=== PATIENT | female | born 1960 | race Caucasian/White ===

== ENCOUNTER → 2017-02-28 | Outpatient (CLI) | payer OTHER ==
--- NOTE | 2017-02-28 19:55 | PN ---
DATE OF SERVICE: 02/28/2017 A 56-year-old lady who has been followed in the sleep center for treatment of obstructive sleep apnea-hypopnea. Patient continued to use her CPAP equipment every night for the whole night without any significant problems. No problems with the machine. She does not snore while using equipment. [place] Sleepiness Scale is in normal range at 7. The patient's sleep schedule now from 9:00 p.m. until 5:30 in the morning. MEDICATIONS: Lisinopril. During physical exam, GENERAL: The patient in no distress. VITAL SIGNS: BP 161/66, HR 93, RR 14. Height 59. Weight 196.6. BMI 39.5. Temperature 98.0. Oxygen saturation at room air 97%. HEENT: PERRLA, EOMI, Evaluation of the oropharynx showed extremely low position of soft palate. NECK: Supple. No JVD, Thyroid is not palpable. LUNGS: Clear to percussion and to auscultation. Good air exchange. No wheezing or rhonchi. HEART: S1, S2 regular. No murmurs, gallops, or rubs. ABDOMEN: Slightly obese. Soft and nontender. Bowel sounds are present. No organomegaly appreciated. CASHIER CREDIT: Awake, alert, and oriented x3. Cranial nerves 2 to 7 intact. There is no fasciculation or atrophy noted. No focal deficits observed. IMPRESSION: 1. Obstructive sleep apnea-hypopnea syndrome on control clinically with CPAP. No snoring with the machine. No sleepiness during the day. 2. Obesity. Patient increased her weight around 8 pounds comparing with the previous visit last year. 3. Hypertension. 4. History of hypothyroidism. PLAN: 1. Continue treatment with the CPAP every night for the whole night. 2. Losing weight. 3. Sleep hygiene with regular time in bed for at least 7-1/2 hours. 4. No driving if feeling any sleepiness. 5. Prescription for all necessary CPAP supplies including mask, tube, filters. Thank you very much for allowing me to participate in the management of your patient. Sincerely, Boni Hinton MD, PhD, FAASM Diplomat of [place] [employer], Sleep Medicine Board by [place] [employer] [place] [employer] Poured Wall Foreman of [facility] [place]
== END | disposition home or self-care (01) ==
LOC: SLEEP 16:13
PROVIDERS: ATTEND Internal Medicine
DX: G47.33 Obstructive sleep apnea (adult) (pediatric) (principal); Z79.899 Other long term (current) drug therapy; E66.9 Obesity, unspecified; Z68.39 Body mass index [BMI] 39.0-39.9, adult; I10 Essential (primary) hypertension

== ENCOUNTER 2018-10-27 13:11 | Emergency (ER) | payer OTHER ==
[2018-10-27] MEDS ORDERED: MORPHINE SULFATE 2 MG/ML SYRINGE IVP STA (13:16)
--- NOTE | 2018-10-27 13:22 | ED ---
Extremity Problem HPI - General Stated complaint: Fall/ankle injury Time Seen by Provider: 10/27/18 13:11 Source: patient, EMS, RN notes reviewed Mode of arrival: EMS - History of Present Illness Initial comments: This is a 58-year-old female history of hypertension who was at work today when she stepped and twisted her left ankle and now complains of severe left ankle pain. She was brought in by EMS. She does have evidence of a deformity. With no pulses. Patient did maintained sensation to given 100 g of fentanyl IM. No other injury reported other pain reported MD Complaint: extremity pain - Related Data Home Medications Medication Instructions Recorded Confirmed Calcium Lactate 84 mg PO DAILY 10/27/18 10/27/18 Cholecalciferol [Vitamin D3] 1,000 unit PO DAILY 10/27/18 10/27/18 Cyanocobalamin (Vitamin B-12) 1,000 mcg PO DAILY 10/27/18 10/27/18 [Vitamin B-12] Iodine 1 tab PO DAILY 10/27/18 10/27/18 Lisinopril [Zestril] 2.5 mg PO DAILY 10/27/18 10/27/18 Previous Rx's Medication Instructions Recorded Hydrocodone/Acetaminophen [[place] 1 each PO Q6HR PRN #12 tab 10/27/18 5-325] Allergies Allergy/AdvReac Type Severity Reaction Status Date / Time No Known Allergies Allergy Verified 10/27/18 13:33 Review of Systems ROS Statement: Those systems with pertinent positive or pertinent negative responses have been documented in the HPI. ROS Other: All systems not noted in ROS Statement are negative. General Exam - General Exam Comments Initial Comments: This a well-developed well-nourished awake alert anxious appearing female [place] Coma Scale 15 Limitations: physical limitation General appearance: alert, anxious, in distress Head exam: Present: atraumatic, normocephalic, normal inspection Eye exam: Present: normal appearance, PERRL, EOMI. Absent: scleral icterus, conjunctival injection, periorbital swelling ENT exam: Present: normal exam, mucous membranes moist Neck exam: Present: normal inspection, full ROM Extremities exam: Present: tenderness, normal capillary refill, joint swelling ( Examination left lower extremity demonstrates tenderness palpation and evidence of deformity of the left ankle with lateral rotation. Pulses are limited however the capillary refills less than 2 seconds sensory is intact motor is intact. No overt pain above and below the injury.), other Neurological exam: Present: alert, oriented X3, CN II-XII intact Psychiatric exam: Present: normal affect, anxious Skin exam: Present: warm, dry, intact, normal color. Absent: rash Course Vital Signs 10/27/18 10/27/18 10/27/18 13:15 15:08 15:20 Temperature 97.7 F Pulse Rate 94 88 86 Respiratory 18 20 18 Rate Blood Pressure 161/69 144/65 150/78 O2 Sat by Pulse 100 100 100 Oximetry 10/27/18 10/27/18 10/27/18 15:35 15:50 16:05 Temperature Pulse Rate 88 90 86 Respiratory 18 18 18 Rate Blood Pressure 140/74 134/69 132/69 O2 Sat by Pulse 100 100 97 Oximetry - Reevaluation(s) Reevaluation #1: 10/27/18 17:[address] Serra a [address] the left ankle is requested prior to discharge this will be accomplished the patient will be then discharged and keep follow-up as planned Procedures - Orthopedic Fracture Reduction Fracture #1 Consent Obtained: verbal consent, written consent, emergent situation Time Out Performed: Yes Side: left Fracture Reduction Location: other (Ankle) Analgesia: procedural sedation Technique: direct manipulation Post Reduction X-rays Demonstrate: acceptable reduction Post-Reduction Neuro Exam: intact Post-Reduction Vascular Exam: intact Splint Applied: Yes (Posterior short leg 5 x 35 by short leg stirrup 3 x 35) Patient Tolerated Procedure: well - Procedural Sedation Procedural Sedation Start Time: 15:20 Indications: fracture/dislocation reduction ASA Class: II Mallampati Airway Score: 2 Preparation: nuclear monitoring technician applied, pulse oximeter, capnometry used, supplemental O2 applied, reversal agents at bedside, suction/airway equipment at bedside, IV secured Midazolam: IV Midazolam Dose: 2 IV Propofol Dose (mgs): 90 Complications: none Patient Tolerated Procedure: well, no complications (Total in-service time for the sedation 24 minutes) Medical Decision Making - Medical Decision Making The patient tolerated this well I did a long discussion with family members. Patient will be discharged and seen around 10 AM [facility] and Dr. Serra I did discuss the case with Kandi. Family has already made an appointment to see the physician tomorrow. Patient does have access to crutches. She and her family are in agreement with this plan. - EKG Data -: EKG Interpreted by Me - Radiology Data Radiology results: report reviewed (I did review all the imaging and reports a displaced fracture dislocation of the left ankle is noted no other fractures or subluxations seen post reduction films were reviewed with good results.), image reviewed Disposition Clinical Impression: Fracture dislocation of left ankle, Fall Disposition: HOME SELF-CARE Condition: Good Instructions: Ankle Fracture (ED), Ankle Dislocation (ED) Prescriptions: Hydrocodone/Acetaminophen [[place] 5-325] 1 each PO Q6HR PRN #12 tab PRN Reason: Pain Is patient prescribed a controlled substance at d/c from ED?: Yes When asked, does pt state using other controlled substances?: No If prescribed controlled substance>3 days was MAPS reviewed?: Prescribed <3 Days Referrals: Shiv Quintanilla DO [Primary Care Provider] - 1-2 days Vijay Serra MD [Medical Doctor] - 1-2 days
[2018-10-27] MEDS ORDERED: ONDANSETRON 4 MG/2 ML VIAL IVP STA ×2 (14:00→16:54)
[2018-10-27] MEDS ORDERED: PROPOFOL 10 MG/ML 20 ML VIAL IV STA (14:25)
[2018-10-27] MEDS ORDERED: MIDAZOLAM 1 MG/ML 5 ML VIAL IV STA (14:27)
--- NOTE | 2018-10-27 14:30 | XR ---
EXAMINATION TYPE: XR ankle limited LT, XR foot limited LT DATE OF EXAM: 10/27/2018 CLINICAL HISTORY: Left ankle and foot pain after a fall TECHNIQUE: Frontal and lateral images of the left ankle and foot are obtained. COMPARISON: None. FINDINGS: There is a comminuted fracture of the distal fibula with approximately 7 mm lateral displac ement of the distal fracture fragment. There is widening of the and a small cyst with no overlap of t he distal tibia or fibula and 1.1 cm diastases. There is also medial subluxation of the tibia with me dial joint space capital 1.6 cm. In regards to the above described fibular fracture on the lateral vi ew there is 6 mm dorsal displacement of the distal fracture fragment. There is cortical disruption of the posterior malleolus as well with the appearance of a minimally displaced noncomminuted fracture. Overlying soft tissue swelling is seen of the left ankle. No additional fracture is seen of the left foot. No proximal fibular or tibial fracture is seen on t he tibia/fibula radiographs. IMPRESSION: Comminuted lateral fibular fracture and syndesmotic widening suggesting syndesmotic injur y with medial tibial subluxation and nondisplaced posterior malleolar fracture of the left lower extr emity.
--- NOTE | 2018-10-27 15:55 | XR ---
EXAMINATION TYPE: XR ankle limited LT DATE OF EXAM: 10/27/2018 CLINICAL HISTORY: Left ankle pain. Status post reduction of fracture subluxation. TECHNIQUE: Frontal, lateral and oblique images of the left ankle are obtained. COMPARISON: Ankle and foot radiographs of the same date. FINDINGS: There is improved anatomic alignment of the previously seen tibial medial subluxation. Ther e is also improved anatomic alignment of the comminuted distal fibular fracture. There remains a 5 mm posterior displacement of the distal fibular fracture fragment. Ankle mortise now maintains alignmen t. The posterior malleolus fracture is subtly seen. Fractures are best described on the ankle radiogr aph of the same date at 2:28 PM. IMPRESSION: Improved alignment status post reduction of the left ankle with fractures as described ab ove.
--- NOTE | 2018-10-27 16:41 | XR ---
EXAMINATION TYPE: XR pelvis AP view DATE OF EXAM: 10/27/2018 CLINICAL HISTORY: Pain after fall TECHNIQUE: A single AP view of the pelvis is obtained. COMPARISON: None. FINDINGS: There is no acute fracture/dislocation evident in the pelvis. The hip and sacroiliac join ts are narrowed indicative of bilateral femoral acetabular arthropathy that is mild and bilateral deg enerative change of the sacroiliac joints small CAM deformities are also seen bilaterally that may pr edispose this patient to femoral acetabular impingement syndrome. The overlying soft tissue appears unremarkable. IMPRESSION: There is no acute fracture or dislocation in the pelvis.
[2018-10-27] MEDS ORDERED: HYDROmorphone 1 MG/ML 1 ML SYRINGE IVP STA (16:54)
[2018-10-27 17:24] LABS: Basophils % (A) 0 %; Eosinophils # (A) 0.2 k/uL (0-0.7); Eosinophils % (A) 2 %; HCT 44.9 % (34.0-46.0); Lymphocytes # (A) 2.4 k/uL (1.0-4.8); Lymphocytes % (A) 23 %; MCH 25.2 pg (25.0-35.0); MCHC 33.4 g/dL (31.0-37.0); MCV 75.5 fL (80.0-100.0); Mean Platelet Volume 7.4; Microcytosis Slight; Monocytes # (A) 0.4 k/uL (0-1.0); Monocytes % (A) 4 %; Neutrophils % (A) 69 %; Platelet Count 272 k/uL (150-450); RBC 5.95 m/uL (3.80-5.40); RDW 14.2 % (11.5-15.5); WBC 10.1 k/uL (3.8-10.6)
[2018-10-27 17:33] LABS: INR 0.9 (<1.2); Partial Thromboplastin Time 31.1 sec (22.0-30.0); Prothrombin Time 9.5 sec (9.0-12.0)
[2018-10-27 17:37] LABS: ALT 30 U/L (9-52); AST 32 U/L (14-36); Albumin 4.5 g/dL (3.5-5.0); Alkaline Phosphatase 101 U/L (38-126); Anion Gap 13 mmol/L; Blood Urea Nitrogen 19 mg/dL (7-17); Calcium 10.8 mg/dL (8.4-10.2); Carbon Dioxide 23 mmol/L (22-30); Chloride 104 mmol/L (98-107); Glucose 94 mg/dL (74-99); Potassium 5.5 mmol/L (3.5-5.1); Sodium 140 mmol/L (137-145); Total Bilirubin 0.6 mg/dL (0.2-1.3); Total Protein 7.5 g/dL (6.3-8.2)
--- NOTE | 2018-10-27 17:58 | CT ---
EXAMINATION TYPE: CT ankle LT wo con DATE OF EXAM: 10/27/2018 COMPARISON: Left ankle x-rays earlier today. HISTORY: Fall injury with pain. Known ankle fractures. CT DLP: 394.8 mGycm Automated exposure control for dose reduction was used. FINDINGS: Overlying fiberglass cast material is now present. There is acute comminuted displaced fracture of lateral malleolus with multiple fracture fragments. N o fracture fragments extend into the mortise. Largest distal fracture fragment is slightly medially a nd posteriorly displaced relative to remainder of fibular diaphysis. There is acute intra-articular comminuted fracture through the posterior malleolus seen best sagittal image 33 along lateral aspect. There is tiny 2-3a mm fracture fragment along posterior medial aspect of the ankle mortise sagittal image 30 and coronal image 46. Medial malleolus is intact. Ankle mortise symmetry is improved after reduction and casting. There is moderate soft tissue swelling and subcutaneous edema over the lateral malleolus. There is presumed tear of the anterior tibiofibular and anterior talofibular ligaments. IMPRESSION: COMMINUTED FRACTURES OF LATERAL AND. POSTERIOR MALLEOLI DETAILED ABOVE
[2018-10-27 18:34] VITALS: BP 134/67; PULSE 84; RESP 16; TEMP 98.3
--- NOTE | 2018-10-28 11:22 | XR ---
EXAMINATION TYPE: XR tibia fibula LT DATE OF EXAM: 10/27/2018 COMPARISON: Left ankle images 10/27/2018 HISTORY: Pain following fall TECHNIQUE: 2 view left tibia and fibula 181905/09/1920 06/09/2019 patient. The patient could not be lo cated. FINDINGS: There is a fracture dislocation of the left ankle with lateral displacement of the talus in relation to the distal tibia. There is an oblique fracture distal fibula. Posterior tibial fracture is not identified on this image. Fractures better visualized on the dedicated ankle images. Please se e left ankle dictation. IMPRESSION: 1. Fracture dislocation of the distal fibula with lateral subluxation of the talus in relation to th e tibia. 2. Please see left ankle dictation for additional description of fracture.
== END 2018-10-27 18:47 | disposition home or self-care (01) ==
LOC: EC 13:11
DX: S82.842A Displaced bimalleolar fracture of left lower leg, initial encounter for closed fracture (principal); I10 Essential (primary) hypertension; Z79.899 Other long term (current) drug therapy; W01.0XXA Fall on same level from slipping, tripping and stumbling without subsequent striking against object, initial encounter; X50.1XXA Overexertion from prolonged static or awkward postures, initial encounter; Y93.01 Activity, walking, marching and hiking; Y92.828 Other wilderness area as the place of occurrence of the external cause; Y99.0 Civilian activity done for income or pay
CPT/HCPCS: 27810; 99152; 99153; 96374; 96375 ×2; 96376; 36415; 80053; 83735; 85025; 85610; 85730; 72170; 73590; 73600; 73620; 73700; 99284; J2405; J2250; J2270; J1170; J2704

== ENCOUNTER 2018-11-19 07:56 | Inpatient (IN) | payer BC, OTHER ==
[2018-11-17 09:24] VITALS: BMI 36.5
[~2018-11-19 07:56] MED LIST: DEXAMETHASONE SOD PHOSPHATE 10 MG/ML 1 ML VIAL IV ONE; HYDROmorphone 0.5 MG/0.5 ML SYRINGE IVP PRN; MIDAZOLAM (PF) 2 MG/2 ML VIAL IV PRN; ONDANSETRON 4 MG/2 ML VIAL IVP ONE; SCOPOLAMINE 1.5MG/72HR PATCH TRANSDERM ONE; ceFAZolin IN SWFI 2 GM/20 ML SYRINGE IVP ONE
[2018-11-19] MEDS ORDERED: LIDOCAINE 1% 20 ML VIAL (10MG/ML) FOR IV START INTRADERMA ONE (08:31)
[2018-11-19] MEDS: LACTATED RINGERS 1,000 ML IV SCH ×2 (08:33→16:41)
[2018-11-19] MEDS ORDERED: fentaNYL (PF) 50 MCG/ML 2 ML AMP IV ONE (09:26)
--- NOTE | 2018-11-19 10:02 | P.ONQ ---
Anesthesiology Proc Note - PNB - Peripheral Nerve Block Performed Left Adductor Canal Single Time Out Performed: Yes (0946) Procedure Start Time: :46 Procedure Stop Time: :56 Indication: Acute Post-Operative Pain, Dx/Pain Location (Left ankle pain), Requested by physician Sedation Type: Sedate with meaningful contact maintained Preparation: Sterile Prep Position: Supine Catheter: None Needle Types: On-Q Needle Size: 100mm (4") Needle Gauge: 21 Technique: Ultrasound Injectate: 0.5% Ropivacaine (see comment for volume) (20ml) Blood Aspirated: No Pain Paresthesia on Injection Noted: No Resistance on Injection: Normal Events: Uneventful and Well Tolerated
--- NOTE | 2018-11-19 10:03 | P.ONQ ---
Anesthesiology Proc Note - PNB - Peripheral Nerve Block Performed Left Popliteal Time Out Performed: Yes (0946) Procedure Start Time: :46 Procedure Stop Time: 09:50 Indication: Acute Post-Operative Pain, Dx/Pain Location (Left ankle pain), Requested by physician Sedation Type: Sedate with meaningful contact maintained Preparation: Sterile Prep Position: Supine Catheter: None Needle Types: On-Q Needle Size: 100mm (4") Needle Gauge: 21 Technique: Ultrasound Injectate: 0.5% Ropivacaine (see comment for volume) (20ml 0.25%) Blood Aspirated: No Pain Paresthesia on Injection Noted: No Resistance on Injection: Normal Events: Uneventful and Well Tolerated
[2018-11-19] MEDS ORDERED: NEOSTIGMINE 1 MG/ML 10 ML VIAL ONE (10:22)
[2018-11-19] MEDS ORDERED: ROCURONIUM BROMIDE 10 MG/ML 10 ML VIAL IV ONE (10:22)
[2018-11-19] MEDS ORDERED: GLYCOPYRROLATE 0.2 MG/ML 2 ML VIAL ONE (10:22)
[2018-11-19] MEDS ORDERED: ROPIVACAINE 5 MG/ML 30 ML VIAL ONE (10:22)
[2018-11-19] MEDS ORDERED: MIDAZOLAM 2 MG/2 ML VIAL ONE (10:22)
[2018-11-19] MEDS ORDERED: LIDOCAINE 1% INJ 10MG/ML (20 ML MDV) ONE (10:22)
[2018-11-19] MEDS ORDERED: fentaNYL (PF) 50 MCG/ML 2 ML AMP ONE (10:22)
[2018-11-19] MEDS ORDERED: ePHEDrine SULFATE/0.9% NACL/PF 50 MG/5 ML SYRINGE IV ONE (10:22)
[2018-11-19] MEDS ORDERED: PROPOFOL 10 MG/ML 20 ML VIAL IV ONE (10:22)
[2018-11-19] MEDS ORDERED: LACTATED RINGERS 1,000 ML IV ONE (12:00)
--- NOTE | 2018-11-19 12:27 | P.OP ---
Date of Procedure: 11/19/18 Preoperative Diagnosis: 1. Closed left trimalleolar equivalent ankle fracture Postoperative Diagnosis: Same Procedure(s) Performed: 1. Open reduction internal fixation of left lateral malleolus fracture 2. Nonoperative management of left posterior malleolus fracture 3. Manual application of joint stress by physician for radiography of left ankle 4. Application of short leg splint by physician, left ankle Anesthesia: ARIEL Surgeon: Vijay Serra Truck Sales Manager #1: Jet Ovalle Estimated Blood Loss (ml): 10 IV fluids (ml): 1,200 Pathology: none sent Condition: stable Disposition: PACU Indications for Procedure: The patient's very pleasant 58-year-old female who sustained an isolated injury to her left ankle. She was found to have a left ankle fracture dislocation and underwent closed reduction in the emergency department. She was seen by me in the office who placed her in a well-padded bulky [place] splint and obtained a computed tomography scan for preoperative planning. I recommended operative fixation of her ankle fracture. We discussed different surgical options. The patient agreed and provided her consent to go forward with surgery. A lengthy discussion on the potential risks and complications of surgery including but not limited to risk of anesthesia, superficial infection, deep infection, delayed wound healing, damage to local but also nerves, nonunion the fracture site, malunion of the fracture site, malreduction of the ankle mortise, postoperative implant failure, chronic pain, chronic swelling, posterior medical arthritis, DVT, PE, other medical complications, and possibly loss of life or limb. The patient voiced understanding of these potential complications and also notes that there are other less common Occasions possible. Description of Procedure: Patient is an Rosalva and the correct left leg was marked my initials. I reviewed the consent form with the patient and her family. All their questions were answered. Popliteal and saphenous nerve block was given by anesthesia. The patient was then brought back to the operating room. She was transferred onto the OR table where general anesthetic and preoperative antibiotics were administered. The right leg was secured to the OR table with foam and tape. A bump was placed on the left buttock internally rotating the left leg to neutral. A tourniquet was applied the proximal aspect of the left thigh. A ramp was placed under the left leg to facilitate intraoperative imaging. The left leg was then prepped and draped in the standard sterile fashion. Prior to surgery timeout verifying the correct patient, operative extremity, and procedure. The patient's leg was then elevated, exsanguinated with an Esmarch bandage, and the tourniquet was inflated to 250 mmHg. Next I began by outlining a straight lateral incision to the distal fibula through skin incision was made with a scalpel. Dissection was carried down carefully to subcu tennis tissue with tenotomy scissors. A branch of the superficial peroneal nerve was identified anteriorly and carefully retracted. The periosteum over the fibula distally was incised and the fascia over the peroneal tendons was incised proximally. On inspection of the fracture there was a large intercalary fragment anteriorly over the distal fibula. There was no oblique fracture posteriorly. The anterior fragment was carefully dissected free and handed off to the back table. The fibula was then pulled out to length and clamped with a [id number] reduction clamp. The intercalary fragment was then placed back anatomically into the anterior fibula and held with a second point reduction clamp. A 0.0625 K wire was placed posteriorly to the posterior cortex of the distal fragment into the anterior intercalary fragment. I then contoured a 2.0 mm plate over the anterior aspect of the distal fibula. A nonlocking 2.0 mm screw was placed proximally and distally holding the intercalary fragment in place. I then placed a nonlocking 2.4 mm lag screw through the plate across the primary fracture line. I then contoured a posterolateral precontoured plate over the distal fibula. A nonlocking 3.5 mm screw was placed proximal to the fracture bringing the plate down to bone. I then proceeded to place an additional three 3.5 mm nonlocking screws proximally. Attention was then turned distally. Two nonlocking 2.7 mm screws were placed distally followed by a locking screw. A mortise view of the ankle was obtained and showed that the fibula was out to length and the talus was anatomically reduced within the ankle mortise. A manual external rotation stress x-ray was performed. There is no widening of the medial clear space or incisura. I interpreted this as a stable syndesmosis and deltoid ligament not requiring additional fixation. A true lateral was taken and showed minimal displacement of the posterior malleolus and no subluxation of the talus posteriorly out of the plafond. The wound was copiously irrigated and closed in layers. A sterile dressing was applied. The tourniquet was let down. The drapes were removed and a well-padded bulky [place] splint was placed with the ankle in neutral. The patient was then awoken from her anesthetic, transferred from the OR table to the [facility], and brought to PACU without the procedure well. Jet Ovalle [facility] was required as a skilled administrative assistant for patient positioning, surgical exposure, reduction of fracture, placement of hardware, closure of wounds, application of splint. Plan: The patient is going to be admitted overnight for pain control and physical therapy for gait training. She is to receive 2 doses of postoperative antibiotics. She is to be strictly nonweightbearing on her operative extremity. The splint is to remain on at all times. She can discharge home when her pain is adequately controlled and she passes physical therapy.
[2018-11-19] MEDS ORDERED: SENNOSIDES-DOCUSATE SODIUM 1 EACH TAB PO PRN (12:42)
[2018-11-19] MEDS ORDERED: ONDANSETRON 4 MG/2 ML VIAL IVP PRN ×2 (12:42→21:35)
[2018-11-19] MEDS ORDERED: HYDROmorphone 1 MG/ML 1 ML SYRINGE IVP PRN (12:42)
[2018-11-19] MEDS ORDERED: HYDROcodone/APAP 5-325MG 1 EACH TAB PO PRN (12:42)
[2018-11-19] MEDS ORDERED: HYDROmorphone 0.5 MG/0.5 ML SYRINGE IVP PRN ×2 (12:42)
--- NOTE | 2018-11-19 14:38 | XR ---
Fluoroscopy INDICATION: Pain FINDINGS: Fluoroscopy time: 15 seconds. Images obtained: 3. IMPRESSIONS: 1. Documentation of fluoroscopy.
[2018-11-19 17:03] LABS: Basophils % (A) 0 %; Eosinophils % (A) 0 %; HCT 43.9 % (34.0-46.0); HGB 13.4 gm/dL (11.4-16.0); Hypochromasia Slight; Lymphocytes # (A) 0.9 k/uL (1.0-4.8); Lymphocytes % (A) 9 %; MCH 23.7 pg (25.0-35.0); MCHC 30.5 g/dL (31.0-37.0); MCV 77.7 fL (80.0-100.0); Mean Platelet Volume 7.3; Monocytes # (A) 0.1 k/uL (0-1.0); Monocytes % (A) 1 %; Neutrophils % (A) 89 %; Platelet Count 257 k/uL (150-450); RBC 5.65 m/uL (3.80-5.40); RDW 13.9 % (11.5-15.5); WBC 10.1 k/uL (3.8-10.6)
[2018-11-19] MEDS: ceFAZolin IN SWFI 2 GM/20 ML SYRINGE IVP SCH (18:30)
[2018-11-19] MEDS: ACETAMINOPHEN TAB 325 MG TAB PO PRN ×2 (18:31→23:52)
[2018-11-19] MEDS ORDERED: METOCLOPRAMIDE 5 MG/ML 2 ML VIAL IVP PRN (21:34)
[2018-11-19] MEDS: hydrOXYzine PAMOATE 25 MG CAP PO PRN (23:53)
[2018-11-20] MEDS: LACTATED RINGERS 1,000 ML IV SCH ×4 (00:18→20:09)
[2018-11-20] MEDS: HYDROcodone/APAP 5-325MG 1 EACH TAB PO PRN ×2 (03:02→09:06)
[2018-11-20] MEDS: ceFAZolin IN SWFI 2 GM/20 ML SYRINGE IVP SCH (03:03)
[2018-11-20] MEDS: ENOXAPARIN 40 MG/0.4 ML SYRINGE SQ SCH (09:07)
[2018-11-20] MEDS: hydrOXYzine PAMOATE 25 MG CAP PO PRN ×3 (09:07→21:22)
--- NOTE | 2018-11-20 12:19 | P.PN ---
Subjective Progress Note Date: 11/20/18 Principal diagnosis: Closed left trimalleolar ankle fracture status-post open reduction internal fixation of left lateral malleolus with nonoperative management of left posterior malleolus fracture This patient is a 58-year-old female who sustained an isolated injury to her left ankle. She was found to have a left ankle fracture dislocation and she underwent a closed reduction in the ER. She was followed by Dr. Serra in the office for a computed tomography scan in surgical planning. Dr. Serra recommended an operative fixation of her ankle fracture. Patient underwent an open reduction internal fixation of the left ankle on 11/19/2018. Today's postoperative day #1. The patient states her pain is currently uncontrolled, she was unable to sleep last night. She denies any numbness or tingling in the left lower extremity. She states she has been keeping her left lower extremity elevated. She has been up with therapy this morning. She denies any new complaints today. Objective - Vital Signs Vital signs: Vital Signs Temp 97.3 F L 11/20/18 07:35 Pulse 78 11/20/18 07:35 Resp 14 11/20/18 07:35 BP 123/57 11/20/18 07:35 Pulse Ox 98 11/20/18 07:35 Intake & Output 11/19/18 11/20/18 11/20/18 18:59 06:59 18:59 Intake Total 1400 740 240 Output Total 10 450 Balance 1390 290 240 Intake: IV 1400 Intake, IV Titration 200 Amount Lactated Ringers 1,000 ml 200 @ 100 mls/hr IV .Q10H [facility] Rx#:[id number] Oral 540 240 Output: Urine 450 Estimated Blood Loss 10 Other: Voiding Method Bedpan # Voids 2 - Exam On examination, the patient is lying in bed in no acute distress. The patient is alert and oriented 3. On inspection of the left lower extremity, there is a bulky [place] splint in place. The splint is clean, dry, and intact. The left toes are warm and well perfused, with capillary refill less than 2 seconds. The patient is able to wiggle his left toes without difficulty. Sensation is intact to light touch of the left lower extremity. Neurovascular is intact of the left lower extremity. - Labs CBC & Chem 7: 11/19/18 16:16 Labs: Abnormal Lab Results - Last 24 Hours (Table) 11/19/18 Range/Units 16:16 RBC 5.65 H (3.80-5.40) m/uL MCV 77.7 L (80.0-100.0) fL MCH 23.7 L (25.0-35.0) pg MCHC 30.5 L (31.0-37.0) g/dL Neutrophils # 9.0 H (1.3-7.7) k/uL Lymphocytes # 0.9 L (1.0-4.8) k/uL Assessment and Plan Assessment: Closed left trimalleolar ankle fracture status-post open reduction internal fixation of left lateral malleolus with nonoperative management of left posterior malleolus fracture Plan: - Strict nonweightbearing of the left lower extremity. Up with therapy, up with a walker. - Lovenox while inpatient for anticoagulation. - 2 doses of postoperative antibiotics complete. - [place] 10 added to pain control regimen. Will continue to assess pain management. - Appreciate medicine consult for medical management. - Continue physical therapy for gait and balance training. - Case management consult for discharge planning. It will be necessary for patient to obtain crutches, hospital bed, knee scooter, and a rolling walker for home use. Anticipate discharge to the next 24 hours. - Patient seen with Dr. Serra.`
[2018-11-20] MEDS: HYDROcodone/APAP 10-325MG 1 EACH TAB PO PRN ×2 (15:13→21:23)
[2018-11-21] MEDS: hydrOXYzine PAMOATE 25 MG CAP PO PRN (04:42)
[2018-11-21] MEDS: HYDROcodone/APAP 10-325MG 1 EACH TAB PO PRN ×5 (04:42→21:25)
[2018-11-21] MEDS: LACTATED RINGERS 1,000 ML IV SCH ×2 (04:56→14:29)
[2018-11-21] MEDS: ENOXAPARIN 40 MG/0.4 ML SYRINGE SQ SCH (09:02)
--- NOTE | 2018-11-21 09:02 | P.PN ---
Subjective Progress Note Date: 11/21/18 Principal diagnosis: Closed left trimalleolar ankle fracture status-post open reduction internal fixation of left lateral malleolus with nonoperative management of left posterior malleolus fracture This patient is a 58-year-old female who sustained an isolated injury to her left ankle. She was found to have a left ankle fracture dislocation and she underwent a closed reduction in the ER. She was followed by Dr. Serra in the office for a computed tomography scan in surgical planning. Dr. Serra recommended an operative fixation of her ankle fracture. Patient underwent an open reduction internal fixation of the left ankle on 11/19/2018. Today's postoperative day #2. The patient states her pain is better controlled today. She has been up to the bathroom already this morning, she is currently sitting in a chair. She states she is having no issues transferring and ambulating with walker. She denies any numbness or tingling in the left lower extremity. She states she has been keeping her left lower extremity elevated. She denies chest pain, shortness of breath, nausea, vomiting. Objective - Vital Signs Vital signs: Vital Signs Temp 98.3 F 11/21/18 07:58 Pulse 82 11/21/18 07:58 Resp 14 11/21/18 07:58 BP 113/65 11/21/18 07:58 Pulse Ox 95 11/21/18 07:58 Intake & Output 11/20/18 11/21/18 11/21/18 18:59 06:59 18:59 Intake Total 699 1620 Balance 699 1620 Intake: Oral 699 1620 Other: Voiding Method Toilet Bedpan # Voids 1 2 - Exam On examination, the patient is sitting up in the chair in no acute distress. The patient is alert and oriented 3. On inspection of the left lower extremity , there is a bulky [place] splint in place. The splint is clean, dry, and intact. The left toes are warm and well perfused, with capillary refill less than 2 seconds. The patient is able to wiggle his left toes without difficulty. Sensation is intact to light touch of the left lower extremity. Neurovascular is intact of the left lower extremity. - Labs CBC & Chem 7: 11/19/18 16:16 Assessment and Plan Assessment: Closed left trimalleolar ankle fracture status-post open reduction internal fixation of left lateral malleolus with nonoperative management of left posterior malleolus fracture Plan: - Strict nonweightbearing of the left lower extremity. Up with therapy, up with a walker. - Lovenox while inpatient for anticoagulation. - 2 doses of postoperative antibiotics complete. - Continue pain management. - Appreciate medicine consult for medical management. - Continue physical therapy for gait and balance training. - Case management consult for discharge planning. It will be necessary for patient to obtain crutches, hospital bed, knee scooter, and a rolling walker for home use. Anticipate discharge to the next 24 hours. - Patient discussed with Dr. Serra.
--- NOTE | 2018-11-21 12:02 | P.CON ---
Consult Note - . Consult date: 11/21/18 Assessment/Plan:: Assessment 1. Closed trimalleolar ankle fracture S/P open reduction internal fixation postop day 2 2. Hypertension Plan - Patient is admitted under orthopedic surgery - Hospice service consulted for medical management - She was having no active complaints except for pain which is controlled as of now as per patient - We'll continue patient's home medications - Vitamin D level ordered. Results of which are pending at this time of dictation - DVT prophylaxis as per primary team - Patient to continue rest of the care - Discharged when appropriate with the primary team. - We will continue to follow the patient along with you Reason for consultation : Medical management HPI : This is a very pleasant 58-year-old female with a history significant for hypertension is seen under consultation for medical management status post open reduction internal fixation of the left lateral malleolar fracture. Patient is postop #2 today. She complains of pain at the site of surgery but says that the pain is well controlled today. She says that she was having constipation but is passing gases and has no abdominal pain. Patient otherwise does not complain of any chest pain, racing heart, no cough, no shortness of breath, no bowel pain, no diarrhea, nausea and vomiting, no tingling or numbness of the extremities, no itch no rash past medical history. Significant for hypertension, obesity Past surgical history : Hysterectomy Family history: Hypertension Social history: Patient quit smoking long time ago. She said that she drinks SOCIALLY, nausea and drug abuse Review of systems: All systems reviewed. Review of systems negative except for stated above in the HPI Physical exam: Vitals : Temperature 98.3 respiration 14 heart rate 82 blood pressure 1:30 no 65 satting 95% on room air On exam, alert and oriented x3. HEENT: Conjunctivae normal. eyes normal. NECK: No JVD. No thyroid enlargement. No LNs CARDIOVASCULAR: S1, S2 . No murmur RESPIRATION: Breath sounds diminished in the bases. No rhonchi or crackles. No bronchial breathing. ABDOMEN: Soft, nontender . No guarding. no masses palpable. No ascites, No hepatosplenomegaly.Bowel sounds heard. LEGS: No edema. no swelling NERVOUS SYSTEM: Cranial N 2-12 grossly normal. Moves all 4 limbs. No focal deficits. No sensory deficit. No signs of cerebellar dysfucntion. Skin: no ulcer no rash Joints: No active swelling. No inflammation. Lymphatic system. No LN neck axilla or groin.
[2018-11-21] MEDS ORDERED: NALOXONE 0.4 MG/ML 1 ML VIAL IV PRN (19:04)
[2018-11-21 21:41] VITALS: RESP 16
[2018-11-22] MEDS: LACTATED RINGERS 1,000 ML IV SCH ×2 (01:01→08:40)
[2018-11-22] MEDS: HYDROcodone/APAP 10-325MG 1 EACH TAB PO PRN ×4 (01:05→13:33)
[2018-11-22] MEDS: hydrOXYzine PAMOATE 25 MG CAP PO PRN (01:05)
[2018-11-22 06:50] VITALS: BP 138/79; PULSE 74; TEMP 97.7
[2018-11-22] MEDS: ENOXAPARIN 40 MG/0.4 ML SYRINGE SQ SCH (08:18)
--- NOTE | 2018-11-22 09:51 | P.DS ---
Providers Date of admission: 11/21/18 07:11 Expected date of discharge: 11/22/18 Attending physician: Vijay Serra Consults: 11/20/18 12:00 Consult Physician Routine Consulting Provider: Dariusz Orantes Consult Reason/Comments: medical management Do you want consulting provider notified?: Yes Primary care physician: [facility] Course: This patient is a 58-year-old female who sustained an isolated injury to her left ankle. She was found to have a left ankle fracture dislocation and she underwent a closed reduction in the ER. She was followed by Dr. Serra in the office for a computed tomography scan in surgical planning. Dr. Serra recommended an operative fixation of her ankle fracture. Patient underwent an open reduction internal fixation of the left ankle on 11/19/2018. The procedure is performed without complication or sequelae. The patient is doing well postoperatively. Vital signs and labs are stable on postoperative day #3. The patient is examined bedside this morning. She states her pain is currently well-controlled. She is transferring while nonweight bearing on operative leg, while using a walker with no issues. She denies chest pain, shortness of breath, nausea, vomiting, fevers, chills, numbness or tingling of the left lower extremity. She states she has not had a bowel movement yet postoperatively, denies abdominal pain. On examination, the patient is lying in bed in no acute distress. The patient is alert and oriented 3. On inspection of the left lower extremity, there is a bulky [place] splint in place. The splint is clean, dry, and intact. The left toes are warm and well perfused, with capillary refill less than 2 seconds. The patient is able to wiggle her left toes without difficulty. Sensation is intact to light touch of the left lower extremity. Neurovascular is intact of the left lower extremity. The right calf is soft and nontender. The patient is discharged to rehab today, pending medical clearance. Please refer to the med rec for accurate list of medications. Plan - Discharge Summary Discharge Rx Participant: Yes New Discharge Prescriptions: New Aspirin 325 mg PO DAILY #14 tab Docusate [Colace] 100 mg PO BID #60 capsule Hydrocodone/Acetaminophen [[place] 5-325] 1 - 2 tab PO Q4-6H PRN #40 tab PRN Reason: Pain HYDROcodone/APAP 10-325MG [[place] 10-325] 1 tab PO Q4-6H PRN 7 Days #40 tab PRN Reason: Pain No Action Hydrocodone/Acetaminophen [[place] 10-325] 1 tab PO Q6H PRN PRN Reason: Pain Lisinopril [Zestril] 10 mg PO DAILY Acetaminophen Tab [Tylenol Tab] 650 mg PO Q6H PRN PRN Reason: Pain Discharge Medication List Acetaminophen Tab [Tylenol Tab] 650 mg PO Q6H PRN 11/17/18 [History] Hydrocodone/Acetaminophen [[place] 10-325] 1 tab PO Q6H PRN 11/17/18 [History] Lisinopril [Zestril] 10 mg PO DAILY 11/17/18 [History] Aspirin 325 mg PO DAILY #14 tab 11/21/18 [Rx] Docusate [Colace] 100 mg PO BID #60 capsule 11/21/18 [Rx] Hydrocodone/Acetaminophen [[place] 5-325] 1 - 2 tab PO Q4-6H PRN #40 tab 11/21/18 [Rx] HYDROcodone/APAP 10-325MG [[place] 10-325] 1 tab PO Q4-6H PRN 7 Days #40 tab 11/22 [Rx] Follow up Appointment(s)/Referral(s): Shiv Quintanilla DO [Primary Care Provider] - 11/25/18 9:20 am (your appointment will be with the GREEN FEED ATTENDANT.) Vijay Serra MD [Medical Doctor] - 12/04/18 2:15 pm Patient Instructions/Handouts: *Surgery [facility] - Scopalamine Patch Instructions Activity/Diet/Wound Care/Special Instructions: -Vitamin D level was 77.7, patient was instructed to continue current dose of vitamin D. -Strict non-weight bearing on your operative leg. Do not remove your splint; Keep splint clean, dry, and intact -Use crutches, knee scooter, or a walker to ambulate after surgery. -Elevate and ice operative leg to help reduce swelling and control pain. -Take pain medications as prescribed. Take Colace as a stool softener. Take aspirin as prescribed for blood clot prevention. - Patient instructed to call her primary care physician if she has not had bowel movement within the next 2 days. -Follow-up appointment with Dr. Serra in the office in 2 weeks. -Call the office with any questions or concerns, Discharge Disposition: TRANSFER TO SNF/ECF
== END 2018-11-22 13:33 | DRG 494 ==
LOC: OR 07:56 → 4SSUR 12:36 → OR 11-20 05:30 → 4SSUR 11-20 05:39 → OBSVTOIN 11-21 07:11
PROVIDERS: ADMIT Orthopaedic Surgery; ATTEND Orthopaedic Surgery
PROC: 0QSK04Z Reposition Left Fibula with Internal Fixation Device, Open Approach (ICD-10-PCS; principal; 2018-11-19 09:45)
DX: S82.852A Displaced trimalleolar fracture of left lower leg, initial encounter for closed fracture (principal); I10 Essential (primary) hypertension; Z82.49 Family history of ischemic heart disease and other diseases of the circulatory system; Z87.891 Personal history of nicotine dependence; Z90.710 Acquired absence of both cervix and uterus; Z79.1 Long term (current) use of non-steroidal anti-inflammatories (NSAID); Z79.891 Long term (current) use of opiate analgesic; Z79.899 Other long term (current) drug therapy
CPT/HCPCS: 64447; 82306; 85025

== ENCOUNTER → 2019-05-14 | Outpatient (CLI) | payer BC ==
--- NOTE | 2019-05-14 16:52 | PN ---
PROGRESS NOTE DATE OF SERVICE: 05/14/2019 59-year-old lady has been followed in Sleep Center for treatment of obstructive sleep apnea-hypopnea syndrome. Patient continued to use CPAP equipment every night for the whole night. No snoring with the machine. [place] Sleepiness Scale today is 5, which is normal. Machine is more than 5 years old, nap of the machine was broken. I checked CPAP unit. CPAP pressure is 8 cm of water. Usage is 30/30 nights for more than 4 hours. Average usage is 9 hours. The patient does not have information about apnea-hypopnea index. MEDICATIONS: Lisinopril. Tramadol, ibuprofen, Tylenol. PHYSICAL EXAM: Patient in no distress. BP 157/80, HR 88, RR 16, height 4 feet 11-1/2 inches, weight 192 pounds. Body mass index 38.7. Patient lost 4 pounds since last visit. Temperature 97.8, oxygen saturation at room air 97%. HEENT: Oropharynx: Low position of soft palate. Mallampati 3. Neck Supple, no JVD. Thyroid is not palpable. LUNGS Clear to percussion and to auscultation. Good air exchange. No wheezing or rhonchi. HEART S1, S2 regular. No murmurs, gallops, or rubs. ABDOMEN: Slightly obese. Soft and nontender. Bowel sounds are present. No organomegaly appreciated. EXTREMITIES No clubbing or cyanosis. BREEDING TECHNICIAN Awake, alert, and oriented X3. Cranial nerves 2 to 7 intact. There is no fasciculation or atrophy. noted. No focal deficits observed. IMPRESSION: 1. Obstructive sleep apnea-hypopnea syndrome, patient demonstrated 100% compliance with treatment benefitting from treatment. 2. Obesity, patient lost 4 pounds since previous visit. 3. Hypertension. 4. Status post surgical treatment of fracture of left ankle. PLAN: 1. Patient will continue to use CPAP equipment every night for the whole night. 2. Prescription for new CPAP unit. 3. Losing weight. 4. No driving if feeling sleepiness. 5. I will see patient after she received new CPAP unit to check apnea-hypopnea index reading from the machine. Thank you very much for allowing me to participate in the management of your patient. Sincerely, Boni Hinton MD, PhD, FAASM Diplomat of [employer] Bundler of [facility] [place] JADA / SEMAJ: [id number] /
== END | disposition home or self-care (01) ==
LOC: SLEEP 13:36
PROVIDERS: ATTEND Internal Medicine
DX: G47.33 Obstructive sleep apnea (adult) (pediatric) (principal); E66.9 Obesity, unspecified; I10 Essential (primary) hypertension; Z68.38 Body mass index [BMI] 38.0-38.9, adult; Z87.81 Personal history of (healed) traumatic fracture; Z99.89 Dependence on other enabling machines and devices; Z98.890 Other specified postprocedural states; Z79.891 Long term (current) use of opiate analgesic; Z79.899 Other long term (current) drug therapy

== ENCOUNTER → 2020-09-08 | Outpatient (CLI) | payer BC ==
--- NOTE | 2020-09-09 03:33 | SFUN ---
SLEEP CENTER FOLLOW UP NOTE DATE OF SERVICE: 09/08/2020 This 60-year-old lady who has been followed in Sleep Center for treatment of obstructive sleep apnea-hypopnea syndrome. This is patient's first visit after she received her new CPAP unit. The patient is using the CPAP equipment every night for the whole night without significant problems, but asking what is the procedure she could stop using her treatment for obstructive sleep apnea in the future as she is improving her breathing. [place] Sleepiness Scale today is 5. I checked patient's CPAP unit. CPAP pressure is 8 cm of water. Usage is 30 out of 30 nights for more than 4 hours, average 8.3 hours per night. Leak is 7 L/minute, which is normal range. Apnea-hypopnea index only 1.0, which is totally perfect. MEDICATIONS: Lisinopril 10 mg once a day and patient no more on tramadol, ibuprofen or Tylenol. PHYSICAL EXAMINATION: GENERAL: Patient in no distress. VITAL SIGNS: BP 85/57, HR 80, RR 16, weight is 174, which is about 18 pounds less than during the previous visit, temperature 98.1, oxygen saturation at room air 98%. HEENT: PERRLA, EOMI. Oropharynx low position of soft palate. Mallampati 3. NECK: Supple, no JVD. Thyroid is not palpable. LUNGS: Clear to percussion and to auscultation. Good air exchange. No wheezing or rhonchi. HEART: S1, S2 regular. No murmurs, gallops, or rubs. ABDOMEN: Slightly obese. EXTREMITIES: No clubbing or cyanosis. AUTOMATIC SCREWMAKER: Awake, alert, and oriented X3. Cranial nerves 2 to 7 intact. There is no fasciculation or atrophy. noted. No focal deficits observed. IMPRESSION: 1. Obstructive sleep apnea-hypopnea syndrome. The patient demonstrated 100% compliance with treatment, benefitting from treatment. 2. Obesity. Patient lost another 18 pounds since previous visit. 3. Hypertension. Totally normal blood pressure today in the office with tendency to low range. 4. Status post surgical treatment of fracture of left ankle. PLAN: 1. Patient will continue to use PAP equipment every night for the whole night. 2. Sleep hygiene with regular time in bed for at least 7-1/2 to 8 hours. 3. Precautions related to driving. No driving if feeling sleepiness. 4. I will maintain all necessary prescription for PAP supplies including mask, tube, filters. 5. Watching weight. 6. No driving if feeling sleepiness. 7. Follow-up visit in 6 months or earlier if patient has any problems. 8. The patient has been extensively explained possibility to look for improvements of her breathing during the sleep while she is losing weight. She was recommended to lose more weight and if she sleeps better after that we may consider to repeat the sleep study for re-evaluation of her breathing. I spent with patient 25 minutes. Thank you very much for allowing me to participate in management of your patient. Sincerely, Boni Hinton MD, PhD, FAASM Diplomat of [place] [employer] [place] [employer] [place] Tender of [facility] [place] MMEMERSONL / WALLACEN: [id number] /
== END | disposition home or self-care (01) ==
LOC: SLEEP 16:00
PROVIDERS: ATTEND Internal Medicine
DX: G47.33 Obstructive sleep apnea (adult) (pediatric) (principal); E66.9 Obesity, unspecified; I10 Essential (primary) hypertension; Z99.89 Dependence on other enabling machines and devices; Z87.81 Personal history of (healed) traumatic fracture

== ENCOUNTER → 2021-05-04 | Outpatient (CLI) | payer BC ==
--- NOTE | 2021-05-05 08:15 | SFUN ---
SLEEP CENTER FOLLOW UP NOTE DATE OF SERVICE: 05/04/2021 INTERVAL HISTORY: This 61-year-old lady has been followed in the sleep Center for treatment of obstructive sleep apnea-hypopnea syndrome. Patient continued to use her CPAP equipment every night. She has many questions related to her CPAP therapy because she has lost some weight. [place] Sleepiness Scale today is 5. I checked her CPAP unit. CPAP pressure is 8 cm of water. Usage is 100% of the nights for more than 4 hours. Average usage is 7.9 hours per night. Leak is 5 L/minute, which is perfect. Apnea-hypopnea index is 0.9, which is totally normal. MEDICATIONS: Lisinopril 2.5 mg once a day. PHYSICAL EXAMINATION: GENERAL: Patient in no distress. VITAL SIGNS: BP 124/73, HR 79, RR 15, height 5 feet, weight 158.2 pounds, temperature is 97.4, oxygen saturation at room air 98%, body mass index 30.8. HEENT: PERRLA, EOMI, evaluation of oropharynx showed tongue protrudes midline. Low position of soft palate, Mallampati 3. NECK: Supple, no JVD. Thyroid is not palpable. LUNGS: Clear to percussion and to auscultation. Good air exchange. No wheezing or rhonchi. HEART: S1, S2 regular. No murmurs, gallops, or rubs. ABDOMEN: Soft and nontender. Bowel sounds are present. No organomegaly appreciated. EXTREMITIES: No clubbing or cyanosis. SHOP HELPER: Awake, alert, and oriented X3. Cranial nerves 2 to 7 intact. There is no fasciculation or atrophy. noted. No focal deficits observed. IMPRESSION: 1. Obstructive sleep apnea-hypopnea syndrome. The patient demonstrated 100% compliance with treatment benefitting from treatment. 2. Patient lost 16 pounds since previous visit and 34 pounds since titration. 3. History of hypertension. Presently, the dose of her medication for hypertension has been decreased. Normal blood pressure in the office today. 4. Status post surgical treatment of fracture of the left ankle. PLAN: 1. Patient will continue to use PAP equipment every night for the whole night. 2. Sleep hygiene with regular time in bed for at least 7-1/2 to 8 hours. 3. Precautions related to driving. No driving if feeling sleepiness. 4. I will maintain all necessary prescription for PAP supplies including mask, tube, filters. 5. Continuing losing weight. 6. We may consider repeating the sleep test without CPAP because the patient lost a significant amount of weight. 7. Follow-up visit in 6 months or earlier if patient has any problems. I spent with the patient and documentation more than 30 minutes. Thank you very much for allowing me to participate in the management of your patient. Sincerely, Boni Hinton MD, PhD, FAASM Diplomat of [employer] Sleep Medicine Board of [employer] of Internal Medicine Household Cook of [facility] [place] MMODL / WALLACEN: [id number] /
== END | disposition home or self-care (01) ==
LOC: SLEEP 13:00
PROVIDERS: ATTEND Internal Medicine
DX: G47.33 Obstructive sleep apnea (adult) (pediatric) (principal); I10 Essential (primary) hypertension; Z96.662 Presence of left artificial ankle joint

== ENCOUNTER → 2022-05-17 | Outpatient (CLI) | payer BC ==
--- NOTE | 2022-05-17 13:25 | P.PN ---
Subjective DATE: 05/17/2022 FOLLOW UP VISIT. Patient with obstructive sleep apnea hypopnea syndrome return to sleep center for follow-up visit. Information from previous visit have been reviewed. Patient is using PAP equipment every night for the whole night, getting PAP supplies in time. The patient does not have significant problems with the mask, PAP unit and humidification. [place] sleepiness scale is 5. I checked information from PAP unit. PAP unit pressure 8 cm H2O. Usage is 100 % for more then 4 hours, average 8.3 hours per night. Leak is 7 l/m, which is in acceptable range. Apnea Hypopnea Index is 0.5, which is normal. MEDICATIONS: None During physical exam: GENERAL: A pleasant patient without any distress. VITAL SIGNS: BP 150/79, HR 78, RR 16 , weight 153.4, temperature 97.5, oxygen saturation at room air 98 % . HEENT: PERRLA, EOMI.low position of soft palate, Mallapati 3 . NECK: Supple. No JVD. LUNGS: Clear to percussion and to auscultation. Good air exchange. No wheezing or rhonchi. HEART: S1, S2 regular. ABDOMEN: Soft and nontender.[] EXTREMITIES: No clubbing or cyanosis. BUSINESS INSIGHT AND ANALYTICS MANAGER: Awake, alert, and oriented x3. No focal deficit. Impressions: 1. Obstructive sleep apnea-hypopnea syndrome. Patient demonstrated great compliance with treatment, benefiting from treatment. 2. History of hypertension. Blood pressure slightly increased in the office today. 3. Status post surgical treatment of fracture of left ankle. 4. Patient lost 5 pounds since previous visit, on previous visits lowest 16 pounds and then 34 pounds lost on previous visit. Plan: 1. Continue using PAP equipment every night for the whole night. 2. To change air filter at least 1-2 times per month. 3. PAP unit should stay lower then position of the head. 4. Advised patient to remove all remaining water from humidifier canister daily and make it dry after each usage. Refill canister with fresh distilled water before each usage. 5. Sleep hygiene with regular time in bed for at least 8 hours. 6. Precautions related to driving. No driving if feel any sleepiness. 7. I will maintain prescription for PAP supplies including mask, tube, filters. 8. Follow up visit in 6 months or earlier if patient has any problems. 9. Watching weight. Thank you very much for allowing me to participate in the management of your patient. Boni Hinton MD, PhD, FAASM. Diplomat of [employer] Medicine, Sleep Medicine Board by [employer] Board [employer] Internal Medicine Sales Person of [facility] [place]
== END | disposition home or self-care (01) ==
LOC: SLEEP 13:04
PROVIDERS: ATTEND Internal Medicine
DX: G47.33 Obstructive sleep apnea (adult) (pediatric) (principal); I10 Essential (primary) hypertension; Z98.890 Other specified postprocedural states
CPT/HCPCS: 99212

== ENCOUNTER → 2023-05-16 | Outpatient (CLI) | payer BC ==
--- NOTE | 2023-05-16 15:43 | P.PN ---
Subjective DATE: 05/16/2023 FOLLOW UP VISIT. Patient with obstructive sleep apnea hypopnea syndrome return to sleep center for follow-up visit. Information from previous visit have been reviewed. Patient is using PAP equipment every night for the whole night, getting PAP supplies in time. The patient does not have significant problems with the mask, PAP unit and humidification. [place] sleepiness scale is 6. I checked information from PAP unit. PAP unit pressure 8 cm H2O. Usage is 100 % for more then 4 hours, average 8.7 hours per night. Leak is 13 l/m, which is in acceptable range. Apnea Hypopnea Index is 1.4, which is normal. MEDICATIONS: None at the present time During physical exam: GENERAL: A pleasant patient without any distress. VITAL SIGNS: BP 149/77, HR 82, RR 12 , weight 129.4, temperature 98.2, oxygen saturation at room air 99 % . HEENT: PERRLA, EOMI.low position of soft palate, Mallapati 3. NECK: Supple. No JVD. LUNGS: Clear to percussion and to auscultation. Good air exchange. No wheezing or rhonchi. HEART: S1, S2 regular. ABDOMEN: Soft and nontender.[] EXTREMITIES: No clubbing or cyanosis. SOLAR THERMAL TECHNICIAN: Awake, alert, and oriented x3. No focal deficit. Impressions: 1. Obstructive sleep apnea-hypopnea syndrome. Patient demonstrated great compliance with treatment, benefiting from treatment. 2. History of hypertension, blood pressure slightly increased in the office today again. 3. Status post surgical treatment of left ankle fracture. Plan: 1. Continue using PAP equipment every night for the whole night. 2. To change air filter at least 1-2 times per month. 3. PAP unit should stay lower then position of the head. 4. Advised patient to remove all remaining water from humidifier canister daily and make it dry after each usage. Refill canister with fresh distilled water before each usage. 5. Sleep hygiene with regular time in bed for at least 8 hours. 6. Precautions related to driving. No driving if feel any sleepiness. 7. I will maintain prescription for PAP supplies including mask, tube, filters. 8. Follow up visit in 6 months or earlier if patient has any problems. 9. Watching weight. Thank you very much for allowing me to participate in the management of your patient. Boni Hinton MD, PhD, FAASM. Diplomat of [place] [employer] Sleep Medicine, Sleep Medicine Board by [place] [employer] of Internal Medicine [facility] Coordinator of [facility] [place]
== END ==
LOC: 3 N SLEEP 13:59
PROVIDERS: ATTEND Internal Medicine
DX: G47.33 Obstructive sleep apnea (adult) (pediatric) (principal); I10 Essential (primary) hypertension; Z98.890 Other specified postprocedural states; Z99.89 Dependence on other enabling machines and devices; Z91.011 Allergy to milk products; Z91.018 Allergy to other foods; Z79.899 Other long term (current) drug therapy; Z87.891 Personal history of nicotine dependence
CPT/HCPCS: 99212